=== PATIENT | female | born 2000 | race Caucasian/White ===

== ENCOUNTER 2021-10-02 21:03 | Emergency (ER) | payer OTHER ==
[2021-10-02 21:27] VITALS: BP 123/78; PULSE 72; TEMP 98.1; BMI 34.9
[2021-10-02 22:00] LABS: BASO % 0.7 % (0-2.0); EOS % 1.5 % (0-4.5); HEMATOCRIT 39.1 % (32.4-45.2); HEMOGLOBIN 13.2 GM/dL (10.7-15.3); LYMPH % 32.3 % (8-40); MCH 29.6 pg (25.7-33.7); MCHC 33.9 g/dl (32.0-36.0); MEAN CELL VOLUME 87.5 fl (80-96); MEAN PLT VOLUME 8.5 fl (7.5-11.1); MONO % 11.1 % (3.8-10.2); NEUT % 54.4 % (42.8-82.8); PLATELET COUNT 251 10^3/uL (134-434); RBC 4.46 M/mm3 (3.60-5.2); RDW 13.9 % (11.6-15.6); WHITE BLOOD COUNT 8.8 K/mm3 (4.0-10.0)
[2021-10-02 22:22] LABS: CALCIUM 9.4 mg/dL (8.5-10.1)
[2021-10-02 22:23] LABS: ALBUMIN 3.8 g/dl (3.4-5.0); BLOOD UREA NITROGEN 6.1 mg/dL (7-18)
[2021-10-02 22:25] LABS: CREATININE 0.5 mg/dL (0.55-1.3)
[2021-10-02 22:27] LABS: TOT PROT 7.4 g/dl (6.4-8.2)
[2021-10-02 22:28] LABS: BILIRUBIN,TOTAL 0.4 mg/dL (0.2-1)
[2021-10-02] MEDS ORDERED: RHO(D) IMMUNE GLOBULIN 1,500 UNIT DISP.SYRIN IM ONE (23:15)
[2021-10-03 00:35] LABS: URINE APPEARANCE CLEAR; URINE BILIRUBIN NEGATIVE (NEGATIVE); URINE COLOR YELLOW; URINE GLUCOSE (UA) NEGATIVE (NEGATIVE); URINE KETONE NEGATIVE (NEGATIVE); URINE LEUK ESTERASE NEGATIVE (NEGATIVE); URINE NITRITE NEGATIVE (NEGATIVE); URINE PROTEIN NEGATIVE (NEGATIVE); URINE UROBILINOGEN 0.2 mg/dL (0.2-1.0)
[2021-10-03 01:03] LABS: EPI CELLS 3 /uL (0-25.1); HYALINE CASTS 0 /uL (0-3.1); URINE BACTERIA 15 /uL (0-1359); URINE RBC 1 /uL (0-23.9); URINE WBC 3 /uL (0-25.8)
== END 2021-10-03 01:25 | disposition home or self-care (01) ==
LOC: JER 21:03
PROC: 3E0234Z Introduction of Serum, Toxoid and Vaccine into Muscle, Percutaneous Approach (ICD-10-PCS; principal; 2021-10-02)
DX: O20.0 Threatened abortion (principal); O26.851 Spotting complicating pregnancy, first trimester; Z3A.01 Less than 8 weeks gestation of pregnancy
CPT/HCPCS: 36415; 76817-TC; 80053; 81003; 84702; 85025; 86900; 86999; 87077; 87086; 99284-25; J1561

== ENCOUNTER 2021-10-07 21:29 | Emergency (ER) | payer OTHER ==
[2021-10-07 21:57] VITALS: BP 112/65; PULSE 78; TEMP 98.2; BMI 34.6
== END 2021-10-07 23:30 | disposition left against medical advice (07) ==
LOC: JER 21:29
DX: N93.9 Abnormal uterine and vaginal bleeding, unspecified (principal)
CPT/HCPCS: 85025; 99281-25